=== PATIENT | male | born 1980 | race Asian ===

== ENCOUNTER 2021-07-08 13:08 | Emergency (ER) | payer OTHER ==
[2021-07-08 13:20] VITALS: BP 115/80; PULSE 62; TEMP 97.3
[2021-07-08] MEDS ORDERED: ONDANSETRON 4 MG/2 ML VIAL IVPUSH ONE (13:43)
[2021-07-08] MEDS ORDERED: SODIUM CHLORIDE 1,000 ML IV STA (13:43)
[2021-07-08] MEDS ORDERED: ONDANSETRON 4 MG/2 ML VIAL ONE ×2 (16:38→16:40)
[2021-07-10 11:07] LABS: SARS-CoV-2 NAA Detected (Not Detected)
== END 2021-07-08 18:55 | disposition home or self-care (01) ==
LOC: JER 13:08
PROC: 3E033GC Introduction of Other Therapeutic Substance into Peripheral Vein, Percutaneous Approach (ICD-10-PCS; principal; 2021-07-08)
DX: J06.9 Acute upper respiratory infection, unspecified (principal)
CPT/HCPCS: 99284-25; C9803; U0003; U0005